=== PATIENT | male | born 1955 | race Caucasian/White ===

== ENCOUNTER → 2018-01-08 09:56 | Outpatient (CLI) | payer BC, SELFPAY ==
[2018-01-08 12:13] LABS: Absolute Lymphocyte Count 2.62 X10^3/ul (0.83-4.51); Absolute Neutrophil Count 4.3 X10^3/uL (2.0-7.7); Basophil# 0.02 X10^3/uL; Basophil% 0.3 % (0-1); Eosinophil# 0.15 X10^3/uL; Hematocrit 51.4 % (40-54); Hemoglobin 17.1 g/dl (13.0-16.5); Lymphocyte # 2.62 X10^3/ul (4.0); Lymphocyte % 34.4 % (19-41); Mean Corp Hgb Conc 33.3 g/gl (32-36); Mean Corpuscular Hgb 29.5 pg (27.0-32.0); Mean Corpuscular Volume 88.8 fL (80-94); Mean Platelet Vol. 9.7 fl (6.2-12.0); Monocyte# 0.56 X10^3/uL; Monocyte% 7.4 % (0-10); Neutrophil # 4.25 X10^3/uL (2.7-7.7); Neutrophil % 55.8 % (47-70); Platelet Count 151 K/mm3 (150-450); RBC Distribution Width CV 14.4 % (11.6-14.6); RBC Distribution Width SD 46.1 fl (35.1-43.9); Red Blood Count 5.79 M/mm3 (4.6-6.2); White Blood Count 7.6 K/mm3 (4.4-11.0)
[2018-01-08 12:14] LABS: POSITIVE COUNT NO; POSITIVE DIFFERENTIAL NO; POSITIVE MORPHOLOGY NO
[2018-01-08 12:24] LABS: Erythrocyte Sedimentation Rate 14 mm/hr (0-20)
[2018-01-08 12:33] LABS: ALB/GLOB Ratio 0.8 RATIO (0.9-2.4); AST(SGOT) 22 U/L (15-37); Alanine Aminotransfer ALT/SGPT 40 U/L (16-61); Albumin, Serum 3.6 g/dL (3.2-5.0); Alkaline Phosphatase 69 U/L (45-117); Anion Gap 8 (5-15); BUN 17 mg/dL (7-18); BUN/Creat Ratio 14.3 RATIO (10-20); Calcium,Total 9.1 mg/dL (8.5-10.1); Chloride 106 mmol/L (98-107); Creatinine, Serum 1.19 mg/dL (0.70-1.30); EST Glomerular Filtration Rate 65 mL/min (>60); Est Glom Filt Rate - Afr Amer 79 mL/min (>60); Globulin 4.3 g/dL (2.2-4.2); Glucose 86 mg/dL (74-106); Potassium 4.2 mmol/L (3.5-5.1); Protein, Total 7.9 g/dL (6.4-8.2); Rheumatoid Factor < 10.0 IU/mL (<15); Sodium Level 140 mmol/L (136-145); Uric Acid 7.5 mg/dL (3.5-7.2)
[2018-01-11 11:06] LABS: CCP IgG Antibodies 9 units (0-19); HEPATITIS B SURFACE AG Negative (Negative); Hep B Surface Antibodies Non Reactive (.); Hep C Antibodies <0.1 s/co ratio (0.0-0.9)
[2018-01-12 09:38] LABS: ANTINUCLEAR ANTIBODIES DIRECT Negative (Negative)
== END ==
PROVIDERS: Family Provider Family Medicine; PCP Family Medicine; Visit Provider Internal Medicine Rheumatology
DX: M06.4 Inflammatory polyarthropathy (principal); I82.5Z9 Chronic embolism and thrombosis of unspecified deep veins of unspecified distal lower extremity; N20.0 Calculus of kidney; I87.2 Venous insufficiency (chronic) (peripheral); Z86.011 Personal history of benign neoplasm of the brain
CPT/HCPCS: 36415; 80053; 84550; 85025; 85652; 86038; 86140; 86200; 86431; 86706; 86803; 87340

== ENCOUNTER → 2018-08-04 13:32 | Outpatient (CLI) | payer BC, SELFPAY ==
--- NOTE | 2018-08-04 13:42 | US_ITS ---
STUDY: RENAL ULTRASOUND - COMPLETE REASON FOR EXAM: Male, 63 years old. Renal cysts. TECHNIQUE: Ultrasound evaluation of the kidneys was performed with real-time and static chatterjee-scale imaging. COMPARISON: CT July 29, 2017. FINDINGS: RIGHT KIDNEY: Normal location of the right kidney, which is normal in size. The right kidney measures 12.4 cm. There is a normal cortex of the right kidney. The renal cortex measures 1.4 cm. There is no right renal mass or cyst. There are no right renal calculi. There is no right hydronephrosis. DISTAL RIGHT URETER: There is non-visualization of the distal right ureter. There is no demonstrated right ureterovesical junction calculus. There is a visualized right ureteral jet. LEFT KIDNEY: Normal location of the left kidney, which is normal in size. The left kidney measures 10.2 cm. There is a normal cortex of the left kidney. The renal cortex measures 1.6 cm. There is a 1.3 cm upper pole cyst, decreased compared to prior CT. There are no left renal calculi. There is no left hydronephrosis. DISTAL LEFT URETER: There is non-visualization of the distal left ureter. There is no demonstrated left ureterovesical junction calculus. There is a visualized left ureteral jet. BLADDER: The distended urinary bladder has a volume of 49 ml. There is a normal wall thickness of the distended urinary bladder. There is no demonstrated mass within the urinary bladder. There are no demonstrated bladder calculi. US/Kidney and Bladder IMPRESSION: Left renal cyst is decreased compared to prior CT. No hydronephrosis. Electronically Signed: Good Foreman MD at 15:52 EST , Service support ,
== END ==
PROVIDERS: Family Provider Family Medicine; PCP Family Medicine; Referring Provider Urology; Visit Provider Urology
DX: N28.1 Cyst of kidney, acquired (principal)
CPT/HCPCS: 76770

== ENCOUNTER → 2019-08-03 06:16 | Outpatient (CLI) | payer OTHER, SELFPAY ==
[2019-08-03 07:06] LABS: Anion Gap 3 (5-15); BUN 11 mg/dL (7-18); BUN/Creat Ratio 8.7 RATIO (10-20); Calcium,Total 9.1 mg/dL (8.5-10.1); Chloride 106 mmol/L (98-107); Creatinine, Serum 1.27 mg/dL (0.70-1.30); EST Glomerular Filtration Rate 60 mL/min (>60); Est Glom Filt Rate - Afr Amer 73 mL/min (>60); Glucose 100 mg/dL (74-106); PSA,Total - Annual Screen 0.79 ng/mL (0.00-4.00); Potassium 3.9 mmol/L (3.5-5.1); Sodium Level 141 mmol/L (136-145)
== END ==
LOC: LAB.FUTURE 06:21 → LAB 13:56
PROVIDERS: Family Provider Family Medicine; PCP Family Medicine; Referring Provider Urology; Visit Provider Urology
DX: C61 Malignant neoplasm of prostate (principal); Z12.5 Encounter for screening for malignant neoplasm of prostate
CPT/HCPCS: 36415; 80048; 84153; G0103

== ENCOUNTER 2020-02-22 18:22 | Emergency (ER) | payer OTHER, SELFPAY ==
[2020-02-22 18:23] VITALS: BP 143/92; PULSE 70; RESP 18; TEMP 37.1; O2SAT 94; BMI 32.1
--- NOTE | 2020-02-22 18:34 | ED.DCSUM_ITS ---
History of Present Illness Chief Complaint: Laceration Informant: Patient Onset: Today Current Severity: Mild Maximum Severity: Moderate Narrative: Patient presents with a 3 cm scalp laceration. He states he hit the top of his head against 1 of the metal hooks that holds the car door closed. He is currently on Xarelto. He did not lose consciousness. He is unsure of his last tetanus update. - Past Medical History (1) Renal cyst Status: Chronic Comment: Complex left renal cyst (2) DVT (deep venous thrombosis) Status: Chronic (3) Hypertension Status: Chronic (4) Meningioma Status: Chronic (5) Nephrolithiasis Status: Chronic Past Medical History - Allergies and Home Meds Allergies/Adverse Reactions: Allergies No Known Allergies Allergy (Verified 02/22/20 18:24) Primary Care Physician: Ghanshyam Early MD [Primary Care Provider] - Surgical History: - - Cholecystectomy, left total knee replacement, removal of meningiomas Lives: Spouse/ Significant Other Smoking Status: Never smoker - Family History Paternal Family History: Reports: Heart Disease Maternal Family History: Reports: Diabetes, Heart Disease Review of Systems General: Denies: Chills, Fever Eyes: Denies: Visual changes - bilaterally ENT: Denies: Bilateral ear pain Cardiovascular: Denies: Chest pain Respiratory: Denies: Dyspnea, Cough Gastrointestinal: Denies: Abdominal pain, Nausea, Vomiting, Diarrhea Musculoskeletal: Denies: Extremity Pain Neurological: Denies: Headache, Weakness, Parasthesia Hematologic: Denies: Easy bruising, Easy bleeding Allergy: Denies: Uticaria Physical Exam Vital Signs/Narrative: Vital Signs Temp Pulse Resp BP Pulse Ox 02/22/20 18:23 98.8 F 70 18 143/92 H 94 Inital Vital Signs reviewed: Yes General: Well nourished, Well developed Head: Normocephalic, Trauma - 3 cm laceration right parietal scalp. Bleeding well controlled. ENT: Moist mucous membranes Neck: - - No C-spine tenderness. Cardiovascular: Regular rate, Regular rhythm Respiratory: No distress, CTA bilaterally Abdomen: Soft, Nontender Extremities: Nontender Skin: Normal color, No rash Neurological: Alert, Oriented x3, Normal Strength, Normal Sensation Psychological: Normal affect Diagnostic/Tx/Re-eval Impressions Brain CT 02/22/20 18:34 IMPRESSION: No acute process or significant interval change * Right inferior temporal bone craniectomy defect noted. A cortical plate-screw construct is present in the frontal and parietal. Moderate volume loss interest for the right temporal lobe is present likely related to the prior meningioma/postsurgical changes. No acute fracture is seen. Electronically Signed: Jeancarlos Hayes MD at 19:35 EDT , Service support , 02/22/20 18:34 CT Head [Brain/Head without Contrast] [CT] Stat - Medical Decision Making Tetanus update is provided. CT scan is unremarkable. Wound is anesthetized with 1 cc of lidocaine with epinephrine. Wound is cleansed and irrigated. Skin is closed with 4 graham. Patient will follow-up with his PCP in 5 to 7 days for staple removal. Procedures - Lacerations No standard instances Length: 1.18 in Depth: Sub Q Laceration repair: Lidocaine with epi, Local Number of Sutures/[place]: 4 - Stable ED Disposition - Plan for ED Patient: Disposition: Home or Assisted Living Diagnosis: Scalp laceration Instructions: ED Laceration Scalp Sutures or Graham Referrals: Ghanshyam Early MD [Primary Care Provider] - 7 Days for suture removal
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
[2020-02-22] MEDS: Diphth,Pertuss(Acell),Tet Vac 0.5 ML Vial IM (18:49)
== END 2020-02-22 20:06 | disposition home or self-care (01) ==
PROVIDERS: Emergency Provider Emergency Medicine; PCP Family Medicine
DX: S01.01XA Laceration without foreign body of scalp, initial encounter (principal); W22.8XXA Striking against or struck by other objects, initial encounter; Y93.9 Activity, unspecified; Y92.810 Car as the place of occurrence of the external cause; Y99.9 Unspecified external cause status; Z23 Encounter for immunization; I10 Essential (primary) hypertension; D32.0 Benign neoplasm of cerebral meninges; Z79.01 Long term (current) use of anticoagulants; Z79.899 Other long term (current) drug therapy; Z86.718 Personal history of other venous thrombosis and embolism; Z96.652 Presence of left artificial knee joint
CPT/HCPCS: 12002; 70450; 90471; 90715; 99283

== ENCOUNTER → 2020-10-09 16:30 | Outpatient (CLI) | payer OTHER, SELFPAY ==
[2020-10-09 18:10] LABS: Absolute Lymphocyte Count 2.91 X10^3/uL (0.83-4.51); Absolute Neutrophil Count 3.9 X10^3/uL (2.0-7.7); Basophil# 0.04 X10^3/uL; Basophil% 0.5 % (0-1); Eosinophil# 0.09 X10^3/uL; Eosinophils% 1.2 % (0-5); Hematocrit 54.3 % (40-54); Hemoglobin 17.2 g/dL (13.0-16.5); Lymphocyte # 2.91 X10^3/ul (4.0); Lymphocyte % 38.2 % (19-41); Mean Corp Hgb Conc 31.7 g/dL (32-36); Mean Corpuscular Hgb 28.8 pg (27.0-32.0); Mean Corpuscular Volume 90.8 fL (80-94); Mean Platelet Vol. 9.6 fl (6.2-12.0); Monocyte# 0.64 X10^3/uL; Monocyte% 8.4 % (0-10); NRBC Flagged by Analyzer 0 % (0-5); Neutrophil # 3.91 X10^3/uL (2.7-7.7); Neutrophil % 51.3 % (47-70); Platelet Count 170 K/mm3 (150-450); RBC Distribution Width CV 14.1 % (11.6-14.6); RBC Distribution Width SD 45.8 fl (35.1-43.9); Red Blood Count 5.98 M/mm3 (4.6-6.2); White Blood Count 7.6 K/mm3 (4.4-11.0)
[2020-10-09 18:19] LABS: Erythrocyte Sedimentation Rate 3 mm/hr (0-20)
[2020-10-09 18:39] LABS: ALB/GLOB Ratio 0.8 RATIO (0.9-2.4); AST(SGOT) 17 U/L (15-37); Alanine Aminotransfer ALT/SGPT 47 U/L (16-61); Albumin, Serum 3.4 g/dL (3.2-5.0); Alkaline Phosphatase 68 U/L (45-117); Anion Gap 3 (5-15); BUN 19 mg/dL (7-18); BUN/Creat Ratio 15.6 RATIO (10-20); CRP 3.86 mg/L (0.0-3.0); Calcium,Total 8.9 mg/dL (8.5-10.1); Chloride 106 mmol/L (98-107); Creatinine, Serum 1.22 mg/dL (0.70-1.30); EST Glomerular Filtration Rate 63 mL/min (>60); Est Glom Filt Rate - Afr Amer 76 mL/min (>60); Globulin 4.1 g/dL (2.2-4.2); Glucose 73 mg/dL (74-106); Potassium 3.6 mmol/L (3.5-5.1); Protein, Total 7.5 g/dL (6.4-8.2); Sodium Level 141 mmol/L (136-145)
== END ==
PROVIDERS: PCP Family Medicine; Referring Provider Internal Medicine Rheumatology; Visit Provider Internal Medicine Rheumatology
DX: M06.4 Inflammatory polyarthropathy (principal); M17.0 Bilateral primary osteoarthritis of knee; N20.0 Calculus of kidney; I87.2 Venous insufficiency (chronic) (peripheral); I82.5Z9 Chronic embolism and thrombosis of unspecified deep veins of unspecified distal lower extremity; Z86.011 Personal history of benign neoplasm of the brain
CPT/HCPCS: 36415; 80053; 85025; 85652; 86140

== ENCOUNTER 2021-10-01 15:17 | Outpatient (CLI) | payer OTHER, SELFPAY ==
[2021-10-01 18:14] LABS: PSA,Total - Annual Screen 0.92 ng/mL (0.00-4.00)
== END 2021-10-01 23:59 | disposition short-term general hospital (02) ==
LOC: LAB 15:19
PROVIDERS: PCP Family Medicine; Visit Provider Urology
DX: Z12.5 Encounter for screening for malignant neoplasm of prostate (principal)
CPT/HCPCS: 36415; 84153; G0103

== ENCOUNTER → 2024-07-07 | Outpatient (CLI) | payer OTHER, SELFPAY ==
--- NOTE | 2024-07-07 13:03 | CT_ITS ---
CT RIGHT LOWER EXTREMITY WITH 3-D IMAGING CLINICAL INDICATION: POST TRAUMATIC OA TECHNIQUE: Axial CT images of the right lower extremity (including right hip, right knee, and right ankle) was performed without IV contrast material. Coronal and sagittal reformats were provided. The protocol utilizes one or more of the following dose reduction techniques: automated exposure control, adjustment of mA and/or kV according to patient size, and/or use of iterative reconstruction technique. RADIATION DOSAGE (If Supplied By Facility): CTDIvol = ( 19.87 ) mGy, DLP = ( 1289.30 ) mGycm COMPARISON: No relevant prior comparison study available. FINDINGS: Bones: There is mild degenerative arthrosis of the right hip joint with small marginal osteophyte formation and subchondral cyst formation in the superolateral aspect of the right femoral head. There is tricompartment degenerative arthrosis of the right knee joint, most severe in the medial femorotibial compartment where there is severe joint space narrowing, marginal osteophyte formation, and subchondral sclerosis. There is mild tibiotalar and subtalar arthrosis. Osseous structures are intact without evidence of fracture or dislocation. No lytic or blastic osseous masses. Soft Tissues: There is a small right knee joint effusion. The deep soft tissue structures are unremarkable. The superficial soft tissues are unremarkable without evidence of edema, hematoma, or foreign body. CT/Extremity Lower without Contra IMPRESSION: Tricompartment degenerative arthrosis of the right knee, most severe in the medial femorotibial compartment. Small right knee joint effusion. Electronically Signed: Mka Short MD at 13:57 EST ,
== END | disposition home or self-care (01) ==
PROVIDERS: PCP Family Medicine; Referring Provider Specialist; Visit Provider Specialist
DX: M25.561 Pain in right knee (principal); M17.31 Unilateral post-traumatic osteoarthritis, right knee; M21.161 Varus deformity, not elsewhere classified, right knee
CPT/HCPCS: 73700

== ENCOUNTER 2024-07-25 07:03 | Observation (INO) | payer OTHER, SELFPAY ==
--- NOTE | 2024-07-07 12:48 | EKG12_ITS ---
Test Reason : PREOP Blood Pressure : */* mmHG Vent. Rate : 63 BPM Atrial Rate : 63 BPM P-R Int : 188 ms QRS Dur : 108 ms QT Int : 412 ms P-R-T Axes : -2 -46 21 degrees QTcB Int : 421 ms Normal sinus rhythm with sinus arrhythmia Left anterior fascicular block Abnormal ECG Confirmed by George Ram ([id number]), senior technical editor BRENT MINER ([id number]) on 07/08/2024 8:18:55 AM Referred By: Kei Early Confirmed By: George Ram
[2024-07-07 13:50] LABS: Absolute Lymphocyte Count 1.63 X10^3/uL (0.83-4.51); Absolute Neutrophil Count 3.9 X10^3/uL (2.0-7.7); Basophil# 0.04 X10^3/uL; Basophil% 0.6 % (0-1); Eosinophil# 0.14 X10^3/uL; Eosinophils% 2.2 % (0-5); Hematocrit 46.8 % (40-54); Lymphocyte # 1.63 X10^3/ul (0.83-4.51); Lymphocyte % 25.6 % (19-41); Mean Corp Hgb Conc 34.2 g/dL (32-36); Mean Corpuscular Hgb 32.3 pg (27.0-32.0); Mean Corpuscular Volume 94.5 fL (80-94); Mean Platelet Vol. 9.1 fl (6.2-12.0); Monocyte% 9.4 % (0-10); NRBC Flagged by Analyzer 0 % (0-5); Neutrophil # 3.94 X10^3/uL (2.7-7.7); Neutrophil % 61.9 % (47-70); Platelet Count 147 K/mm3 (150-450); RBC Distribution Width CV 14.9 % (11.6-14.6); RBC Distribution Width SD 50.6 fl (35.1-43.9); Red Blood Count 4.95 M/mm3 (4.6-6.2); White Blood Count 6.4 K/mm3 (4.4-11.0)
[2024-07-07 13:58] LABS: International Normalized Ratio 1.3; Partial Thromboplast Time 28.9 Seconds (24.1-36.2); Prothrombin Time (Protime)PT. 15.7 SECONDS (11.7-14.9)
[2024-07-07 14:09] LABS: Albumin, Serum 3.4 g/dL (3.2-5.0); Anion Gap 4 (5-15); BUN 17 mg/dL (7-18); BUN/Creat Ratio 13.9 RATIO (10-20); Calcium,Total 8.8 mg/dL (8.5-10.1); Chloride 110 mmol/L (98-107); Creatinine, Serum 1.22 mg/dL (0.70-1.30); EST Glomerular Filtration Rate 62 mL/min (>60); Est Glom Filt Rate - Afr Amer 75 mL/min (>60); Glucose 103 mg/dL (74-106); Magnesium 2.1 mg/dL (1.6-2.6); Potassium 3.8 mmol/L (3.5-5.1); Sodium Level 142 mmol/L (136-145)
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
[2024-07-25] VITALS (22 sets, daily range): BP systolic 113–138; BP diastolic 64–78; PULSE 61–81; RESP 16–18; TEMP 36.3–36.9; O2SAT 89–97; BMI 31.8
--- NOTE | 2024-07-25 07:15 | PCM.PRE.AN2 ---
ASA Classification* ASA Classification ASA Classification: 2 Assessment & Plan Anesthesia* Anesthesia Assessment Anesthesia Assessment: Discussed sedation and/or anesthesia options, risks, benefits, and alternatives with patient/parents/legal guardian/POA. Questions invited. The patient/parents/legal guardian/POA seems to understand and agrees to proceed with anesthesia plan. Reviewed the physical assessment, medical history, allergy history and patient home medications list prior to surgery/procedure/anesthetic and documented any changes. Performed airway and anesthesia risk assessments. Anesthesia Type Anesthesia Type: General (vs spinal) and Block Anesthesia Focused Assessment* Airway Assessment Mouth opens: >3 cm Mallampati Score: II Focused Labs Anesthesia Preop lab: CBC WBC 6.4 K/mm3 (4.4-11.0) 07/07/24 13:31 RBC 4.95 M/mm3 (4.6-6.2) 07/07/24 13:31 Hgb 16.0 g/dL (13.0-16.5) 07/07/24 13:31 Hct 46.8 % (40-54) 07/07/24 13:31 Plt Count 147 K/mm3 (150-450) L 07/07/24 13:31 CHEMISTRY Potassium 3.8 mmol/L (3.5-5.1) 07/07/24 13:31 Sodium 142 mmol/L (136-145) 07/07/24 13:31 Magnesium 2.1 mg/dL (1.6-2.6) 07/07/24 13:31 BUN 17 mg/dL (7-18) 07/07/24 13:31 Creatinine 1.22 mg/dL (0.70-1.30) 07/07/24 13:31 Glucose 103 mg/dL (74-106) 07/07/24 13:31 COAG PT 15.7 SECONDS (11.7-14.9) H 07/07/24 13:31 Pre-Assessment Diagnosis/Proposed Procedure Planned Operative Procedure(s): ROBOTIC ASSISTED RIGHT TOTAL KNEE ARTHROPLASTY, ERAS Anesthesia History Anesthesia History - database administration associate: Anesthesia History - database administration associate Hx Hospitalization No 07/04/24 15:32 Any Problems With Anesthesia No 07/04/24 15:32 Cholinesterase deficiency No 07/04/24 15:32 You/Your Family Experience No 07/04/24 15:32 fever (hyperthermia) with Relationship Recent Exposure to Contagious No 07/22/17 10:00 Disease Does patient have nerve No 07/04/24 15:32 stimulator Patient instructed to have device shut off --Does patient have Pacemaker or ICD? When Was Last Pacemaker Check QUESTION #4 FULL TEXT: You/Your Family Experience fever (hyperthermia) with Anesthesia Last Oral Intake Last Oral intake: Last Oral Intake NPO since Meds taken in AM with sips of water? Meds patient instructed to take am of surgery PONV PONV - database administration associate: PONV - database administration associate Female No 07/04/24 15:32 HX of Motion Sickness No 07/04/24 15:32 HX of N/V After Surgery No 07/04/24 15:32 Non-Smoker Yes 07/04/24 15:32 Duration of Surgery greater Yes 07/04/24 15:32 than 60 minutes Number of Risk Factors 2 07/04/24 15:32 PONV Score Moderate Risk 07/04/24 15:32 Height & Weight Height & Weight: Anesthesia: Height & Weight Height 6 ft 01/02/21 12:17 Respiratory Assessment Respiratory Assessment - database administration associate: Respiratory Tract Infection Hx - database administration associate Hx Respiratory Tract Infection No 07/04/24 15:32 STOP Sleep Apnea STOP Sleep Apnea - database administration associate: STOP Sleep Apnea - database administration associate Hx Hypertension Yes: hx of, NONE PRESENTLY 07/04/24 15:32 Hx Sleep Apnea No 07/04/24 15:32 CPAP BIPAP Do you snore loudly (louder No 07/04/24 15:32 than talking or can be heard Do you often feel tired/ No 07/04/24 15:32 fatigued/ sleepy during daytime? Has anyone observed you stop No 07/04/24 15:32 breathing during sleep? STOP Results Negative 07/04/24 15:32 QUESTION #5 FULL TEXT : Do you snore loudly (louder than talking or can be heard through closed doors)? 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 Specify any problems Hx of Preganancy in last 3 N/A 07/04/24 15:32 Months Nurse Filling Out Transfusion VCHRISTIN 07/04/24 15:32 & Questions: Date: 07/04/24 07/04/24 15:32 Time: 15:33 07/04/24 15:32 Patient unable to answer at this time (ie. confused, unrespo /Reproduction History /Reproductive History - database administration associate: /Reproductive Hx- database administration associate Hx Now Gestational Age (in weeks): EDC: Hx Hx Para Hx Section SAB Active Medications Active Medications: Current Medications Generic Name Dose Route Start Last Admin Trade Name Freq PRN Reason Stop Dose Admin Acetaminophen 1,000 mg 07/25/24 08:45 Acetaminophen 500 Mg Tablet PO 07/25/24 08:46 X1 ONE Acetaminophen 1,000 mg 07/25/24 14:00 Acetaminophen 500 Mg Tablet PO Q8 HERBERTH Celecoxib 400 mg 07/25/24 08:45 Celecoxib 200 Mg Capsule PO 07/25/24 08:46 X1 ONE Tranexamic Acid 2,000 mg/ 0 mg 07/25/24 08:45 Sodium Chloride 100 ml OPERA.SITE 07/25/24 08:46 X1 ONE Sodium Chloride 77.4 ml/ 0 ml 07/25/24 08:45 Ropivacaine 200 mg/ OPERA.SITE 07/25/24 08:46 Epinephrine HCl 0.6 mg/ X1 ONE Ketorolac Tromethamine 30 mg/ Morphine Sulfate 5 mg Dexamethasone Sodium Phosphate 10 mg 07/25/24 08:45 Dexamethasone 10 Mg/Ml Vial IV 07/25/24 08:46 X1 ONE Enoxaparin Sodium 60 mg 07/25/24 18:00 Enoxaparin 60 Mg/0.6 Ml Syringe SC 07/26/24 18:01 Q12@0600,1800 [facility] Enteral Nutritional Formula 237 ml 07/25/24 08:00 Ensure Surgery 237 Ml Liquid PO TIDCM [facility] Famotidine 20 mg 07/25/24 10:00 Famotidine 20 Mg Tablet PO DAILY [facility] Folic Acid 1 mg 07/25/24 10:00 Folic Acid 1 Mg Tablet PO BID [facility]BER[facility] Gabapentin 600 mg 07/25/24 08:45 Gabapentin 600 Mg Tablet PO 07/25/24 08:46 X1 ONE Hydroxychloroquine Sulfate 200 mg 07/25/24 08:00 Hydroxychloroquine 200 Mg Tablet PO BIDCM [facility] Lactated Ringer's 1,000 mls @ 999 mls/hr 07/25/24 08:45 IV 07/25/24 09:45 .Q1H1M HERBERTH Lactated Ringer's 1,000 mls @ 999 mls/hr 07/25/24 08:45 IV 07/25/24 09:45 .Q1H1M [facility]BER[facility] Cefazolin Sodium 2 gm/ N/A 20 mls @ 400 mls/hr 07/25/24 08:45 IV 07/25/24 08:47 PREOP ONE Magnesium Sulfate 1 gm/ 102 mls @ 408 mls/hr 07/25/24 08:45 Dextrose IV 07/25/24 08:59 X1 ONE Cefazolin Sodium 1 gm in 50 mls @ 150 mls/hr 07/25/24 14:00 IV 07/25/24 22:19 Q8 HERBERTH Insulin Human Lispro 1 - 6 unit 07/25/24 08:45 Insulin Lispro 100 Unit/Ml Insuln.Pen SC 07/25/24 18:00 Q4H PRN PRN BG>/= 180, SEE PROTOCOL Protocol Methotrexate 17.5 mg 07/25/24 07:15 Methotrexate 2.5 Mg Tablet PO QWEEK [facility] Morphine Sulfate 2 - 4 mg 07/25/24 07:03 Morphine 2 Mg/Ml Syringe IV Q2H PRN PRN Pain Score 6-10 Non-Formulary Medication 15 meq 07/25/24 10:00 Potassium Chloride PO BID [facility] Ondansetron HCl 4 mg 07/25/24 07:03 Ondansetron 4 Mg/2 Ml Vial IV Q8H PRN PRN NAUSEA Oxycodone HCl 5 - 10 mg 07/25/24 07:03 Oxycodone 5 Mg Tablet PO Q4H PRN PRN Pain Score 4-10 Promethazine HCl 12.5 mg 07/25/24 07:03 Promethazine 25 Mg/Ml Syringe IM Q6H PRN PRN NAUSEA/VOMITING Protocol Rivaroxaban 20 mg 07/26/24 10:00 Rivaroxaban 20 Mg Tablet PO DAILY [facility] Senna/Docusate Sodium 2 tablet 07/25/24 10:00 Senna/Docusate Sodium 1 Tablet PO BID [facility] Sodium Chloride 5 - 15 ml 07/25/24 08:45 0.9% Nacl Peripheral Flush Adult/Peds IV UD PRN SALINE FLUSH PFSH Medical History Wears hearing aid Wears glasses Rheumatoid arthritis DVT (deep venous thrombosis) Back pain Injury of head and neck Non-smoker History of pain when walking History of edema Hypertension History of rheumatic fever History of brain tumor Cephalgia Forehead laceration Forehead laceration Home Medications ?Medication ?Instructions ?Recorded ?Last Taken ?Type rivaroxaban 20 mg tablet (Xarelto) 20 mg PO DAILY blood thinner 07/09/17 07/08/17 History hydroxychloroquine 200 mg tablet 200 mg PO BIDCM 02/22/20 Unknown History potassium chloride 15 mEq 15 meq PO BID 02/22/20 Unknown History tablet,extended release(part/cryst) folic acid 1 mg tablet 1 mg PO BID 01/02/21 Unknown History methotrexate sodium 2.5 mg tablet 17.5 mg PO QWEEK 07/04/24 Unknown History Allergy/AdvReac Type Severity Reaction Status Date / Time No Known Allergies Allergy Verified 07/04/24 15:14 Surgical History History of surgical procedure on eye proper using laser History of cystoscopy Hx of total knee replacement History of laparoscopic cholecystectomy Hx of cataract extraction Social History Smoking Status: Never smoker Review of Systems (Anesthesia) ROS Narrative System reviewed and no additional complaints, except as documented.
[2024-07-25] MEDS: Magnesium 1 GM over 15 mins IV (07:53)
[2024-07-25] MEDS: Lactated Ringers 1,000 ML 999 ML IV ×2 (07:54→12:12)
[2024-07-25] MEDS: Gabapentin 600 MG Tablet PO (07:55)
[2024-07-25] MEDS: Celecoxib 200 MG Capsule 400 MG PO (07:55)
[2024-07-25] MEDS: Acetaminophen 500 MG Tablet 1000 MG PO ×2 (07:55→21:22)
[2024-07-25 08:33] LABS: Bedside Glucose 109 mg/dL (74-106)
[2024-07-25] MEDS: Cefazolin 2 GM in Syringe IV (08:44)
--- NOTE | 2024-07-25 08:45 | KNEE_PTH ---
PATIENT: STANLEY CLAUDIO LOC: MS3 U#:[id number] AGE/SX: 69/M ROOM: [facility] [place] RE07/25/[address]: Dr. Kei Early MD : 1955 BED: 1 DIS: 07/26/2024 SPEC #: [id number] RECD: 07/25/24 13:05 STATUS: KAMLESH REMichelle #: [id number] AFSHAN: 07/25/24 08:[address]: Kei Early DEPT: SURGICAL PATHOLOGY RECD BY: Teressa Alonzo ENTERED: 07/25/24 13:46 SP TYPE: TOTAL KNEE OTHR DR: Dr. Ghanshyam Early MD Tissues: Knee, NOS Procedures: Decalcification bone/plaque Surgery Specimen Level IV HEADER OPERATION: Robotic assisted right total knee arthroplasty PRE-OP DIAGNOSIS: Severe right knee osteoarthritis TISSUE SUBMITTED: Debrided bone and tissue - right knee MICROSCOPIC DIAGNOSIS Bone and tissue of right knee, total knee resection: Severe degenerative joint disease. AM:mr 07/29/2024 MICROSCOPIC DESCRIPTION Slides are reviewed. GROSS DESCRIPTION Received is one container designated bone and soft tissue right knee. The specimen consists of multiple fragments of severino-yellow bone measuring in aggregate 16.0 x 14.0 x 2.2 cm. Also in the specimen container are multiple fragments of yellow-white soft tissue measuring in aggregate 8.0 x 3.0 x 2.0 cm. A number of bony fragments contain articular surfaces consistent with tibial plateau and femoral condyle and displaying prominent osteophyte formation, eburnation and bone erosion. Road Machine Runner sections are submitted in two cassettes as follows: 1 - soft tissue, 2 - bone after decalcification. / AM. 07/25/2024 TC:5 CPT: 56282, 97668
[2024-07-25] MEDS: dexAMETHasone 10 MG/ML Vial IV (08:48)
[2024-07-25] MEDS: JPS (Morphine 10mg/ml) OPERA.SITE (09:49)
[2024-07-25] MEDS: TRANEXAMIC ACID 2,000 MG, 0.9% Normal Saline (100mL Bag) 100 ML OPERA.SITE (10:15)
--- NOTE | 2024-07-25 10:20 | PCM.OPRPT ---
Operative Report (Standard) Operative Information Surgery/Procedure Performed: Minimally invasive right robotic assisted total knee replacement Surgeon: Kei Early Date of Procedure: 07/25/24 Procedure Start Time: 09:08 Procedure Stop Time: 10:51 Pre-Operative Diagnosis: Right knee primary osteoarthritis Post-Operative Diagnosis: right knee primary osteoarthritis Select all DRAINS/GRAFTS/IMPLANTS that apply: Prosthetic device Prosthetic device details: See body of operative report Type of Anesthesia: Spinal Special Medications: 2 g Ancef, 1 g TXA at incision, 1 g TXA closure, 10 mg Decadron, joint cocktail (5 mg Duramorph, 30 mL of 0.5% Ropivicaine, 1000 units of epinephrine, 30 mg of Toradol) Estimated Blood Loss: 300 Fluids Replaced: 1500 mL crystalloid Specimen collected: Yes Description of specimen(s) removed: Bony cuts Description of surgery: Implants used: 1. Darron size 5 triathlon cruciate retaining distal femoral press-fit component 2. Darron size 6 press-fit tritanium tibial baseplate 3. [place] X3 9 mm polyethylene 4. Darron X3 38 mm asymmetric patella Brief history operative indications: 69-year-old M with history of right knee osteoarthritis with radiographic findings with loss of joint space, osteophyte formation and subchondral sclerosis. Failed conservative measures as mentioned in the H&P. Discussion of total knee arthroplasty as well as risk and benefits were discussed the patient including but not limited to blood loss, DVTs, PEs, neurovascular damage, general risk of anesthesia including loss of life, and stiffness or instability were discussed with patient. Patient demonstrated understanding and was able to sign informed consent. Procedure: On the date of procedure patient's right lower extremity was marked in the preoperative area. The patient was then taken back to the operating room where the patient was placed on the table in the supine position. All bony prominences were identified a well-padded. Anesthesia assumed control of the C-spine and airway and remained controlled throughout the remainder of the procedure. A tourniquet was placed on the right upper thigh and the leg was prepped in a sterile fashion. The surgeon then scrubbed at this time .Upon reentering the room right lower extremity was draped in a standard orthopedic fashion. A timeout was then called and everyone agreed upon the side, the site, the procedure to be performed, patient's identity and antibiotics given. Esmarch bandage was used to exsanguinate the extremity and the tourniquet was placed up to 250 mmHg with the knee in flexion. A midline skin incision was made and sharp dissection was taken down through skin subcutaneous tissue and fat. The standard medial parapatellar incision was made and the patella was subluxed laterally. An Appropriate deep MCL release was done and the fat pad was resected. Our attention was then directed to the patella. The patella was everted and a flat resection was made. The knee was then flexed up in 2 femoral pins were placed inside the incision and 2 tibial pins were placed outside the incision in the medial tibia bicortically. Once this was completed the 2 checkpoints in the femur and tibia were placed. Knee was then flexed up and the bony landmarks were registered. Once this was completed knee was taken through range of motion and manually stressed allowing us to a plan for an appropriate tibial cut. The robotic arm was brought into the field sterilely and checkpoint and saw were registered. Based on the patient's deformity the tibial cut was made in 3 degrees of varus. At this time the tensioner was then placed in the joint and ligament tension was checked at 90 degrees and full extension. Based on the patient's ligamentous tension appropriate adjustments were made to the operative plan and ligament releases were done. Once we were happy with our operative plan with balanced flexion and extension gaps our attention was directed to the femur. The robot was brought into the field sterilely and registered. Posterior condylar cuts, anterior chamfer cuts and anterior cuts were appropriately made for a size 5 femur. When these were completed the saws were switched out in the distal femoral and posterior chamfer cuts were made. Protecting the soft tissue throughout this time. A size 6 tibial base plate was selected. the knee was flexed to 90 degrees and the soft tissues and posterior osteophytes were removed from the joint. 40 cc of the periarticular injection was injected into the posterior medial corner of the joint. The appropriate trials were then placed on the femur and tibia. A trial polyethylene was trialed to ensure proper balancing and stability of the knee. The appropriate tibial internal rotation was then marked with a bovie. Our attention was then directed to the patella. The lug holes were drilled and the patella trial was placed. Patellar tracking was checked and deemed appropriate. Once we were happy lug holes were drilled for the femur and trial components were removed. The tibia was subluxed and pinned into place and the keel was punched and drilled appropriately. Final components were verified and opened. The wound was copiously irrigated with normal saline. When the cement was ready the components were impacted into place starting with the tibia then the femur, finally the patella was compressed into place. The trial poly component was placed and the knee was placed in full extension. Once the the implants were secured, the tracking, alignment and balance were verified and a size 9 mm CS polyethylene component was placed. Once the final components were placed a 3-minute dilute Betadine lavage was performed followed by an Irrisept lavage was performed and the wound was copiously irrigated with normal saline solution and the periarticular injection was given. The wound was closed in a layer kirby fashion using #1 vicryl interrupted sutures for the arthrotomy, 2-0 interrupted Vicryl suture for the subcuticular layer and graham for final skin closure. A sterile compressive dressing was then placed. The patient was then awakened from anesthesia, transferred to the [place] and transferred to the PACU for recovery. Post op plan DVT ppx: Patient has significant history and family history of DVT prophylaxis. He will be bridged with Lovenox this evening and tomorrow as he started Xarelto. His normal dose of Xarelto is 20 mg daily which will start tomorrow morning. The plan is outlined in his history and physical as was previously discussed with this primary care physician. Additionally, based on patient's previous history with DVTs developing within 24 hours of surgery any signs or symptoms in the morning would warrant a screening ultrasound we will monitor closely. Follow up: in office in 2 weeks for wound check PT: to start POD #0 at hospital, outpatient PT should be arranged. My physician account management assistant was a vital part of this case, they was important because there was not another skilled set of hands available to their training and aptitude needed for safe and appropriate completion of this case. They were important in appropriate retraction during the case, and protection of soft tissues during bony cuts. In particular the experience and skill of this account management assistant made for safe retraction and exposure during implantation of medical implants without damage to vital soft tissues or structures. His intimate knowledge of the case and my steps aided in safe and expedient completion of the procedure as well as appropriate position of the leg during the case. He was also vital in assisting with closure under my direct supervision. Due to the complexity of this case robotic arm was used to assist in the surgery to improve accuracy and clinical outcomes. Surgical Findings: Stable knee with good patella tracked Sales And Leasing Agent facility service associate: Yes Ambulatory Technologist: Dhruv Childs Tasks completed by registered nurse first assistant: Altering tissue and Other (See op report body) Complications Complications: No Admit VTE Documentation VTE Present on Admission: No VTE Mechan Device Prophylaxis: SCD's and Thigh High ELIZABETH Hose VTE Pharm Prophylaxis ordered?: Yes
--- NOTE | 2024-07-25 11:06 | PCM.POST.ANE ---
Anesthesia: Postop Eval I Current Vital Signs Temperature: 97.4 F Pulse Rate: 65 Blood Pressure: 136/76 Respiratory Rate: 18 Pulse Ox: 93 Assessment Airway patent: Yes Spontaneous unlabored respirations: Yes nausea: No Vomiting: No Anesthesia Complication: No Fluid Hydration Crystalloid volume administer (ml): 1,500 Total IV fluid infused: 1,500 Progress Note Anesthesia document: Postop Eval 1 completed: Yes
--- NOTE | 2024-07-25 11:20 | RAD_ITS ---
EXAM: XR RIGHT KNEE, 1 OR 2 VIEWS CLINICAL INDICATION: post op -- AP and Lateral x-ray of operative knee in PACU TECHNIQUE: Frontal and/or lateral views of the right knee. COMPARISON: No relevant prior studies available. FINDINGS: BONES/JOINTS: Unremarkable. No acute fracture. No sclerotic or destructive changes observed. Normal anatomic alignment of the femoral component and tibial component and patellar component of the metallic knee arthroplasty. SOFT TISSUES: Postoperative air and postoperative soft tissue swelling in the right knee. Midline surgical graham overlying the anterior knee surface. RAD/Knee 1 or 2 Views IMPRESSION: Normal postop changes of the right metallic knee arthroplasty. Electronically Signed: Jeffy Pavon MD at 13:25 EST ,
[2024-07-25] MEDS: oxyCODONE 5 MG Tablet PO ×2 (14:03→18:54)
--- NOTE | 2024-07-25 14:15 | PCM.POST.ANE ---
Anesthesia: Postop Eval I Current Vital Signs Temperature: 97.7 F Pulse Rate: 61 Blood Pressure: 134/76 Respiratory Rate: 16 Pulse Ox: 96 Assessment Airway patent: Yes Spontaneous unlabored respirations: Yes nausea: No Vomiting: No Anesthesia Complication: No Fluid Hydration Crystalloid volume administer (ml): 500 Total IV fluid infused: 500 Progress Note Anesthesia document: Postop Eval 1 completed: Yes
--- NOTE | 2024-07-25 14:16 | PCM.POSTANE2 ---
Anesthesia Postop Eval I Sum Postop Eval Completion status Anesthesia document: Postop Eval 1 completed: Yes Anesthesia Postop Eval I Summary Anesthesia Postop Eval I Summary: Anesthesia Postop Eval I: Assessment Summary Airway patent Yes 07/25/24 14:16 Spontaneous unlabored Yes 07/25/24 14:16 respirations Mental status nausea No 07/25/24 14:16 Vomiting No 07/25/24 14:16 Anesthesia Postop Eval I: Fluid Summary Crystalloid volume administer 500 07/25/24 14:16 (ml) Colloids volume administered ( ml) Blood Product volume administered (ml) Total IV fluid infused 500 07/25/24 14:16 Anesthesia Postop Eval I: Summary Notes Anesthesia Complication No 07/25/24 14:16 Anesthesia Complication Comment: Post-operative progress note Anesthesia: Postop Eval II Evaluation Mental status: Awake Pain Level: 2 nausea: No Vomiting: No
--- NOTE | 2024-07-25 16:36 | PN.HOSP_ITS ---
Reason for Visit Reason for Visit: Diagnoses Encounter for other preprocedural examination (07/25/24) Subjective Subjective Patient postoperatively with no complaints and notes he is doing well. He denies any pain at this point and has sensation returning and is moving his extremity without issue. He does report being hungry otherwise no complaints. Patient denies fevers, chills, nausea, emesis, abdominal pain, chest pain or dyspnea. Objective Data Objective Data Vital Signs: Vital Signs Temp Pulse Resp BP Pulse Ox O2 Del Method O2 Flow Rate 97.7 F L 61 16 134/76 H 96 Nasal Cannula 2 07/25/24 14:16 07/25/24 14:16 07/25/24 14:16 07/25/24 14:16 07/25/24 14:16 07/25/24 13:30 07/25/24 13:30 Oxygen Flow Rate (L/min) 2 Oxygen Delivery Method Nasal Cannula Weight: 235 lb 3.732 oz Body Mass Index (BMI) 31.8 Intake & Output: Intake and Output for Last 24 Hours 07/23/24 07/24/24 07/25/24 23:59 23:59 23:59 Intake Total 2121 Balance 2121 Lab / Micro Data 07/07/24 13:31 07/07/24 13:31 Labs: Laboratory Results - last 24 hr 07/25/24 07:47: POC Glucose 109 H Micro: Microbiology 07/07/24 13:31 Swab (Method) Nasal Screen MRSA/MSSA - Final Radiography Diagnostic Testing: Radiology Impression Knee X-Ray 07/25/24 11:20 IMPRESSION: Normal postop changes of the right metallic knee arthroplasty. Electronically Signed: Jeffy Pavon MD at 13:25 EST , Physical Exam Narrative Physical Examination: General: Awake, alert, oriented x 3 and cooperative, seated upright in the area bed in no apparent distress, notes pain control. Skin: Normal color, normal turgor, no icterus, no cyanosis except for recent OR with right knee with dressing in place with no drainage HEENT: AT/NC, EOMI, PERRLA, MMM. Lungs: CTA bilaterally, moderate effort, mild decrease BL bases, no rales, ronchi or wheezing. Heart: Regular rate and rhythm; no gallop, rub audible. Abdomen: Soft, obese, NTTP, ND, normal BS. Extremities: No cyanosis, no clubbing, no marked peripheral edema, status post right total knee with dressing in place without drainage. Neurological: Patient awake, alert, oriented as noted, cognitive function intact; pupils equally reactive to light and accommodation, cranial nerves grossly normal, moving all 4 extremities except expected limitations given the recent OR with right total knee replacement, strength moderately global decreased Psychiatric: Affect appears normal, denies any pain, no acute evidence of depressive or anxiety feelings. Assessment & Plan Assessment/Plan (1) Osteoarthritis: PLAN: Plan The patient is a 69 y/o M w/ PMHx: Obesity, Hx VTE, Hx meningioma, Rheumatoid arthritis, HTN, Hx Nephrolithasis who presents to the [facility] on 07/25/24 secondary to history of significant right knee primary osteoarthritis with failed outpatient interventions and treatments per recommendation of Dr. Early for planned right total knee replacement. #1. Severe Osteoarthritis, right knee: Failed conservative therapies and treatments, admitted per Dr. Early, s/p 07/25/2024 minimally invasive right robotic assisted total knee replacement, post-operative pain management, bowel regimen, DVT Prophylaxis, PT/OT/CM per Orthopedic surgery discretion. #2. Hypertension: Noted history, not on any regimen, BP normal range, continue to monitor and add regimen if appropriate. #3. History of VTE: Recommend resumption of patient anticoagulant therapy once cleared per general surgery. #4. Rheumatoid arthritis: Patient is on methotrexate as well as Plaquenil and folic acid, given recent surgery may consider holding these agents if concern for healing, certainly would hold methotrexate as this is orally administered Wednesdays. #5. History of meningioma: Status post previous gamma knife surgery/craniectomy, most recent imaging noted 02/22/[address] of the brain with evidence of right inferior temporal bone craniectomy defect noted, cortical plate screw construct present in the frontal and parietal lobe, moderate volume loss right temporal lobe felt likely from prior meningioma/postsurgical changes. #6. Obesity: Weight loss and lifestyle changes encouraged. #7. DVT prophylaxis: As noted recommend resumption of patient anticoagulant therapy once cleared per general surgery. Charges/Coding Visit Charges Inpatient E&M: 73930 Subs Hosp L3
[2024-07-25] MEDS: Cefazolin 1 GM/50 ML BAG IV (17:55)
[2024-07-25] MEDS: Hydroxychloroquine 200 MG Tablet PO (17:58)
[2024-07-25] MEDS: Enoxaparin 60 MG/0.6 ML Syringe SC (17:58)
[2024-07-25] MEDS: Folic Acid 1 MG Tablet PO (17:58)
[2024-07-25] MEDS: Ensure Surgery 237 ML LIQUID PO (18:16)
[2024-07-25] MEDS: Potassium Chloride Oral Tablet 10 MEQ 15 MEQ PO (21:21)
[2024-07-25] MEDS: Senna/Docusate Sodium 1 Tablet 2 TABLET PO (21:22)
[2024-07-26] MEDS: Cefazolin 1 GM/50 ML BAG IV (01:26)
[2024-07-26 01:30] VITALS: BP 109/73; PULSE 62; RESP 16; TEMP 37.2; O2SAT 96
[2024-07-26 05:11] VITALS: BP 122/76; PULSE 68; RESP 16; TEMP 37.2; O2SAT 99
[2024-07-26] MEDS: Enoxaparin 60 MG/0.6 ML Syringe SC (05:22)
[2024-07-26] MEDS: Acetaminophen 500 MG Tablet 1000 MG PO (05:22)
[2024-07-26 06:32] LABS: Hematocrit 37.5 % (40-54); Hemoglobin 12.3 g/dL (13.0-16.5); Mean Corp Hgb Conc 32.8 g/dL (32-36); Mean Corpuscular Hgb 31.6 pg (27.0-32.0); Mean Corpuscular Volume 96.4 fL (80-94); Mean Platelet Vol. 9.3 fl (6.2-12.0); Platelet Count 142 K/mm3 (150-450); RBC Distribution Width CV 14.6 % (11.6-14.6); RBC Distribution Width SD 51.1 fl (35.1-43.9); Red Blood Count 3.89 M/mm3 (4.6-6.2); White Blood Count 11.7 K/mm3 (4.4-11.0)
--- NOTE | 2024-07-26 06:51 | VDLE_ITS ---
Reason For Study: Bilateral leg pain RIGHT LEFT CFV is compressible, spontaneous, phasic, GSV is normal. competent and demonstrates normal CFV is compressible, spontaneous, phasic, augmentation. competent, and demonstrates normal FV is compressible, spontaneous, phasic, augmentation. competent and demonstrates normal FV is compressible, spontaneous, phasic, augmentation. competent and demonstrates normal POP V is compressible, spontaneous, phasic, augmentation. competent and demonstrates normal POP V is compressible, spontaneous, phasic, augmentation. competent and demonstrates normal T/P Trunk is compressible. augmentation. PTV is compressible. T/P Trunk is compressible. RT PerV is compressible. PTV is compressible. GSV is partially compressible throughout with LT PerV is compressible. bright intraluminal echoes consistent with Chronic SVT. Procedure This is a venous duplex using B-mode, color flow and spectral Doppler. Exam performed portable in patient room. A preliminary report was called and/or faxed to [employer] consultant. VL/Venous Duplex US - Jose Antonio Extrem Interpretation Summary Chronic superficial vein thrombosis is noted in the right great saphenous vein. Deep veins of the bilateral lower extremities are patent and compressible segme ntally. There is no evidence of bilateral lower extremity deep vein thrombosis. The left great saph enous vein appears patent and compressible segmentally. Ordering Physician: Dhruv Childs Referring Physician: Kei Early Performed By: Melva Blunt RVT
--- NOTE | 2024-07-26 06:52 | PN.ORTHO_ITS ---
Subjective Subjective The patient was sitting in bed upon examination. Patient denies any chest pain, shortness of breath, dizziness, lightheadedness, nausea or vomiting. Patient does have some bilateral calf soreness. He does have past history of DVT. Patient is on significant DVT prophylaxis plan perioperatively. Managed by his primary care provider. Pain is controlled on medications. No adverse overnight events. Patient has been out of bed walking. Objective Data Objective Data Vital Signs: Vital Signs Temp Pulse Resp BP Pulse Ox O2 Del Method O2 Flow Rate 98.9 F 68 16 122/76 H 99 Room Air 2 07/26/24 05:11 07/26/24 05:11 07/26/24 05:11 07/26/24 05:11 07/26/24 05:11 07/26/24 05:11 07/25/24 13:30 Oxygen Flow Rate (L/min) 2 Oxygen Delivery Method Room Air Weight: 106.7 kg Body Mass Index (BMI) 31.8 Intake & Output: Intake and Output for Last 24 Hours 07/24/24 07/25/24 07/26/24 23:59 23:59 23:59 Intake Total 3822 / 4422 1400 / 1400 Output Total 350 / 920 995 / 995 Balance 3472 / 3502 405 / 405 Lab / Micro Data 07/26/24 05:09 07/26/24 05:09 Labs: Laboratory Results - last 24 hr 07/25/24 07:47: POC Glucose 109 H 07/26/24 05:09: WBC 11.7 H, RBC 3.89 L, Hgb 12.3 L, Hct 37.5 L, MCV 96.4 H, MCH 31.6, MCHC 32.8, RDW Std Deviation 51.1 H, RDW Coeff of Fito 14.6, Plt Count 142 L, MPV 9.3 Micro: Microbiology 07/07/24 13:31 Swab (Method) Nasal Screen MRSA/MSSA - Final Radiography Diagnostic Testing: Radiology Impression Knee X-Ray 07/25/24 11:20 IMPRESSION: Normal postop changes of the right metallic knee arthroplasty. Electronically Signed: Jeffy Pavon MD at 13:25 EST , Physical Exam Narrative Vital signs stable and afebrile. SCDs and ELIZABETH hose are in place bilaterally Patient is able to plantarflex and dorsiflex actively. Sensation is intact to light touch to saphenous, sural, superficial and deep peroneal, and tibial distribution. Main Mepilex dressing is clean dry and intact. Distal pin site dressing has moderate drainage. Patient does have bilateral calf soreness today, he has past history of DVT Const alert, oriented x3 and no apparent distress Assessment & Plan Assessment/Plan (1) Status post total right knee replacement: PLAN: 1. S/P robotic assisted right total knee arthroplasty POD #1 2. Continue Pain Medications: Tylenol and oxycodone 3. DVT Prophylaxis: Patient already had his Lovenox this morning. He will resume his Xarelto 20 mg this morning. Plan will be to get 1 more dose today of Lovenox in the evening. I did discuss case with nursing and the patient. If patient does not get his evening dose in the hospital he has Lovenox at home that he will do his dose if needed. Patient will resume his Xarelto as prescribed by primary care physician. Patient will also continue with the sequential compression devices that was discussed at the preoperative visit which they will purchase. He will wear these for the next 2 weeks 20 hours/day. Continue with elevation. Patient does have some calf soreness bilaterally today. I did place an order for a Doppler ultrasound bilaterally. He has been instructed to contact his primary care physician with any worsening calf pain upon discharge. He currently denies any chest pain or shortness of breath. Please see history and physical exam documentation for extensive DVT prophylaxis plan perioperatively. 4. PT/OT: Weightbearing as tolerated with walker 5. H & H: 12.3/37.5, asymptomatic. Labs have been reviewed and stable 6. Reactive leukocytosis: 11.7, Afebrile. Patient did receive Decadron intraoperatively. No clinical signs of infection. 7. Encouraged Incentive Spirometry 8. Patient is aware of postoperative constipation that can occur from 1-3 days postoperatively. Will continue with senna 2 tablets twice daily until first bowel movement. Patient was advised if not having a bowel movement after day 3 she is to contact orthopedics so appropriate change can be made. Patient voiced understanding. 9. Continue postoperative medical treatment per medicine 10. Disposition: Plan will be for discharge home today as long as patient remains medically stable, tolerates therapy, and pain is adequately controlled. I discussed with the patient the DVT prophylaxis plan again. He voiced understanding agreement with treatment plan. I did discuss with the patient upon discharge if there are any concerns or questions he is to contact our office. They are aware that our office is closed on and Thursday however we do have an on-call doctor that they can talk to if needed. He has outpatient physical therapy established. He will follow-up per postoperative instructions. OARRS was attempted however system is currently down. This dictation was created using voice recognition software. Phonetic and/or grammatical errors may exist. (2) DVT (deep venous thrombosis): QUALIFIERS: Affected thrombotic vein of extremity: unspecified vein of extremity Chronicity: chronic DVT location: lower extremity L aterality: unspecified laterality Qualified Code(s): I82.509 - Chronic embolism and thrombosis of unspecified deep veins of unspecified lower extremity
--- NOTE | 2024-07-26 06:58 | DCINST_ITS ---
Discharge Instructions Diet Discharge Diet: No restrictions DC O2, CPAP, BIPAP needs Additional Home O2 Discharge instructions: No Dressing / Incision Discharge Activity: May Not Drive (No driving for 6 weeks postoperatively. Must also be off all narcotics and able to walk 100 feet without the use of cane or walker.) May shower in (days): 1 (Please turn dressing away from water. Okay to get wet as long as dressing is intact to skin.) Ice area for (Minutes): 20 (Every 1-2 hours while awake. Please place barrier between the skin and ice pack.) Weight Bearing Status: Weight bearing as tolerated Keep extremity elevated above heart level: Operative Extremity Dressing / Incision Call your doctor if your incision/area has: Continuous Slow Oozing, Sudden Increased Bleeding, Increased Pain/ Swelling, Increased Redness and Foul Smelling Discharge Call your doctor if you observe: Fever of 101 or Higher, Coldness, Increased Pain, Numbness or Tingling, Change in Color, Shortness of breath, Chest pain, Calf discomfort and Uncontrolled pain Remove Dressing in: 4 days (Okay to remove dressing on July 30, 2024) Additional Dressing/Incision Instructions:: Follow [facility] Post-op Instructions. Once postoperative dressing has been removed only use gentle soap and water over the incision. Do not use any ointments, Neosporin, salves, alcohol pads over the incision for 6 weeks postoperatively. Do not submerge underwater for 6 weeks postoperatively. DVT prophylaxis plan: Continue Xarelto 20 mg daily. If you do not receive the evening dose of Lovenox on July 26, 2024 in the hospital you will need to take this at home. Continue the sequential compression devices 2 weeks postoperatively wearing these 20 hours/day. If any chest pain, shortness of breath, calf pain would recommend going to the emergency room upon discharge. Continue with ELIZABETH hose/elastic stockings for 2 weeks postoperatively. May remove at nighttime but needs to be placed back on the leg during the day. Do NOT use alcohol with narcotic pain medication. Do NOT make important decisions while taking narcotic medication. If you have problems with taking your medication (rash, itching, nausea, etc.) call the office at once. Follow Up Care Test Results: Test results from this visit will be discussed in further detail at your follow-up appointment, if applicable. Discharge Plan Admission Attending Provider: Kei Early Primary Care Provider: Ghanshyam Early Consulting Providers: Desire Stone Instructions Print Language: Kiswahili Discharge Orders/Prescriptions Prescriptions: New acetaminophen 500 mg Tablet 1,000 mg PO TID 14 Days Qty: 84 0RF Rx Instructions: Do not take more than 3000 mg Tylenol in a 24-hour period. famotidine 20 mg Tablet 20 mg PO DAILY 30 Days Qty: 30 0RF oxycodone 5 mg Tablet 5 - 10 mg PO Q4H PRN PRN (Reason: As needed for pain) 7 Days Qty: 42 0RF sennosides-docusate sodium [Stimulant Laxative Plus] 8.6-50 mg Tablet 2 tab PO BID 3 Days Qty: 12 0RF Rx Instructions: Take until first bowel movement, then as needed enoxaparin 60 mg/0.6 mL Syringe 60 mg subcut Q12@0600,1800 Qty: 0 0RF Rx Instructions: Take last Lovenox evening on July 26, 2024. If you do not receive this in the hospital you will need to take this at home. Continued folic acid 1 mg tablet 1 mg PO BID Xarelto 20 MG tablet 20 mg PO DAILY Patient Comments: hydroxychloroquine 200 MG tablet 200 mg PO BIDCM potassium chloride 15 MEQ tablet,ER particles/crystals 15 meq PO BID methotrexate sodium 2.5 mg tablet 17.5 mg PO QWEEK Discontinued enoxaparin 60 mg/0.6 mL syringe 60 mg subcut Q12.TCU Referrals / Follow Up: Physical,Therapy [Other] - 08/01/24 1:30 pm Ghanshyam Early MD [Primary Care Provider] - Alexia Perkins PA [Med Staff - [facility]] - 08/08/24 2:00 pm Disposition Disposition (needs filled in before D/C Order can be placed): Home, Self Care
[2024-07-26 07:00] LABS: Anion Gap 6 (5-15); BUN 25 mg/dL (7-18); BUN/Creat Ratio 22.5 RATIO (10-20); Calcium,Total 8.5 mg/dL (8.5-10.1); Chloride 110 mmol/L (98-107); Creatinine, Serum 1.11 mg/dL (0.70-1.30); EST Glomerular Filtration Rate 69 mL/min (>60); Est Glom Filt Rate - Afr Amer 84 mL/min (>60); Estimated Creatinine Clearance 77.05 ml/min; Glucose 149 mg/dL (74-106); Sodium Level 139 mmol/L (136-145)
[2024-07-26] MEDS: oxyCODONE 5 MG Tablet PO ×2 (07:24→11:26)
[2024-07-26] MEDS: Senna/Docusate Sodium 1 Tablet 2 TABLET PO (07:24)
[2024-07-26] MEDS: Potassium Chloride Oral Tablet 10 MEQ 15 MEQ PO (07:25)
[2024-07-26] MEDS: Rivaroxaban 20 MG Tablet PO (07:25)
[2024-07-26] MEDS: Famotidine 20 MG Tablet PO (07:26)
[2024-07-26] MEDS: Hydroxychloroquine 200 MG Tablet PO (07:26)
[2024-07-26] MEDS: Folic Acid 1 MG Tablet PO (07:26)
[2024-07-26] MEDS: Ensure Surgery 237 ML LIQUID PO (07:28)
[2024-07-26 09:40] VITALS: BP 110/72; PULSE 59; RESP 16; TEMP 36.6; O2SAT 97
--- NOTE | 2024-07-26 09:45 | CASEMGMT ---
RIKKI ACEVES Assessment: Face to Face with pt for initial transition planning/care coordination assessment. RIKKI ACEVES introduced self and role at [facility], pt voices understanding and consents to assessment. Pt is A&O x4 and answers all questions appropriately at this time. Pt sitting up in bed in no distress. Care providers, pharmacy, and demographics verified/updated. Admitting Dx: Robotic assisted R total knee arthroplasty Strata Score: NA PCP:Sharath Specialists:michelle Early; Eli, rheum Preferred Pharmacy: [facility] Insurance: [employer] Prescription Benefit: yes LNOK: Chantal Odonnell, Living Arrangements: Pt lives with in a split level home with 2 steps to enter. Pt reports prior to surgery, he was I in ADLs/IADLs. Pt denies concerns at home. Transportation: Pt drives self and denies concerns with transportation. Pt will transport pt until he can drive again. DME:cane, FWW, shower chair HHC/SNF: Denies hx of Pt states no concerns with going home at time of dc. Pt has outpt therapy set up at [facility] on 08/01. Pt has order for lovenox tonight. Pt states he has given lovenox to himself before. Pt states he also has had multiple surgeries and knows what to expect. Pt states no further concerns/needs. CM to follow. Advised pt to ask CM if any further question/concerns/needs arise, voices understanding. Pt Goal: Home with outpt therapy Plan: Home with outpt therapy Can BRANDT CM
--- NOTE | 2024-07-26 10:01 | PN.HOSP_ITS ---
Subjective Subjective Doing well, no issues overnight. Some knee pain managed by meds Objective Data Objective Data Vital Signs: Vital Signs Temp Pulse Resp BP Pulse Ox O2 Del Method O2 Flow Rate 98 F 59 L 16 110/72 97 Room Air 2 07/26/24 09:40 07/26/24 09:40 07/26/24 09:40 07/26/24 09:40 07/26/24 09:40 07/26/24 09:40 07/25/24 13:30 Oxygen Flow Rate (L/min) 2 Oxygen Delivery Method Room Air Weight: 235 lb 3.732 oz Body Mass Index (BMI) 31.8 Intake & Output: Intake and Output for Last 24 Hours 07/25/24 07/26/24 07/27/24 03:59 03:59 03:59 Intake Total 4472 / 4472 750 / 750 Output Total 920 / 920 425 / 425 Balance 3552 / 3552 325 / 325 Lab / Micro Data 07/26/24 05:09 07/26/24 05:09 Labs: Laboratory Results - last 24 hr 07/26/24 05:09: WBC 11.7 H, RBC 3.89 L, Hgb 12.3 L, Hct 37.5 L, MCV 96.4 H, MCH 31.6, MCHC 32.8, RDW Std Deviation 51.1 H, RDW Coeff of Fito 14.6, Plt Count 142 L, MPV 9.3, Sodium 139, Potassium 4.0, Chloride 110 H, Carbon Dioxide 24.0, Anion Gap 6, BUN 25 H, Creatinine 1.11, Estim Creat Clear Calc 77.05, Est GFR (MDRD) Af Amer 84, Est GFR (MDRD) Non-Af 69, BUN/Creatinine Ratio 22.5 H, G lucose 149 H, Calcium 8.5 Micro: Microbiology 07/07/24 13:31 Swab (Method) Nasal Screen MRSA/MSSA - Final Radiography Diagnostic Testing: Radiology Impression Knee X-Ray 07/25/24 11:20 IMPRESSION: Normal postop changes of the right metallic knee arthroplasty. Electronically Signed: Jeffy Pavon MD at 13:25 EST , Physical Exam Narrative General: Alert, Oriented x3, Cooperative, No apparent distress HEENT: Atraumatic, PERRLA, EOMI, Normocephalic Oral: Moist Mucosa Neck: Supple, No JVD Lungs: Clear to auscultation, Normal air movement, No rhonchi, No wheeze, No rales Cardiovascular: Regular rate, Regular Rhythm, Normal S1, Normal S2, No murmurs Abdomen: Soft, Non Tender, Non-Distended, No Hepato-splenomegaly Extremities: No edema, Capillary Refill Less than 3 Seconds Skin: Right knee dressing intact Musculoskeletal: No Tenderness to Palpation of Joints or Extremities Neurological: No focal neurological deficits, Motor Exam 5/5 strength throughout, Sensory exam intact to light touch and pain Psych/Mental Status: Normal Affect, Appropriate Assessment & Plan Assessment/Plan (1) Osteoarthritis: PLAN: Plan 07/26/2024: Doing well, pain is controlled. Pain management per primary. From a medical standpoint can be discharged #1. Severe Osteoarthritis, right knee: Failed conservative therapies and treatments, admitted per Dr. Early, s/p 07/25/2024 minimally invasive right robotic assisted total knee replacement, post-operative pain management, bowel regimen, DVT Prophylaxis, PT/OT/CM per Orthopedic surgery discretion. Can resume his home medications #2. Hypertension: Noted history, not on any regimen, BP normal range, continue to monitor and add regimen if appropriate. #3. History of VTE: Recommend resumption of patient anticoagulant therapy once cleared per general surgery. #4. Rheumatoid arthritis: Patient is on methotrexate as well as Plaquenil and folic acid, given recent surgery may consider holding these agents if concern for healing, certainly would hold methotrexate as this is orally administered Wednesdays. #5. History of meningioma: Status post previous gamma knife surgery/craniectomy, most recent imaging noted 02/22/[address] of the brain with evidence of right inferior temporal bone craniectomy defect noted, cortical plate screw construct present in the frontal and parietal lobe, moderate volume loss right temporal lobe felt likely from prior meningioma/postsurgical changes. #6. Obesity: Weight loss and lifestyle changes encouraged. Charges/Coding Visit Charges Inpatient E&M: 76249 Subs Hosp L2
[2024-07-26 11:42] VITALS: BP 123/65; PULSE 69; RESP 16; TEMP 36.4; O2SAT 94
--- NOTE | 2024-07-26 12:19 | PHA.DC_ITS ---
Pharmacy [facility] has performed discharge medication reconciliation and counseling for this patient. 1. ACETAMINOPHEN 1000MG PO TID X 2 WEEKS 2. FAMOTIDINE 20MG PO DAILY 3. OXYCODONE 5-10MG PO Q4H PRN PAIN 4. SENNA/DOCUSATE 2T PO BID The patient's discharge medication list was reviewed for discrepancies and discrepancies were resolved. The patient was counseled on the following discharge medications and changes in medications for homegoing were reviewed. The Reason for Use, instructions for use, and potential side effects were reviewed for all new medications. The patient's questions regarding all of their medications were answered. The patient was able to verbally demonstrate an understanding of their discharge medications. Patient was counseled by pharmacy ancillary, Kyler. Medications at Discharge Home Medications rivaroxaban 20 mg tablet (Xarelto) 20 mg PO DAILY blood thinner 07/09/17 hydroxychloroquine 200 mg tablet 200 mg PO BIDCM 02/22/20 potassium chloride 15 mEq tablet,extended release(part/cryst) 15 meq PO BID 02/22/20 folic acid 1 mg tablet 1 mg PO BID 01/02/21 methotrexate sodium 2.5 mg tablet 17.5 mg PO QWEEK 07/04/24 acetaminophen 500 mg tablet 1,000 mg (2 x 500 mg) PO TID 14 days #84 tabs 07/26/24 enoxaparin 60 mg/0.6 mL subcutaneous syringe 60 mg (0.6 mL) subcut Q12@0600,1800 #0 mL 07/26/24 famotidine 20 mg tablet 20 mg PO DAILY 30 days #30 tabs 07/26/24 oxycodone 5 mg tablet 5 - 10 mg (1 - 2 x 5 mg) PO Q4H PRN PRN As needed for pain 7 days #42 tabs 07/26/24 sennosides 8.6 mg-docusate sodium 50 mg tablet (Stimulant Laxative Plus) 2 tab PO BID 3 days #12 tabs 07/26/24
== END 2024-07-26 12:35 | disposition home or self-care (01) ==
LOC: MS3 07-26 07:11 → SDC 07-26 16:36 → MS3 07-26 16:36
PROVIDERS: Admitting Provider Specialist; PCP Family Medicine; Referring Provider Specialist; Visit Provider Specialist
PROC: 0SRC0JZ Replacement of Right Knee Joint with Synthetic Substitute, Open Approach (ICD-10-PCS; CPT 27447; principal; 2024-07-25 08:15)
DX: M17.11 Unilateral primary osteoarthritis, right knee (principal); M06.9 Rheumatoid arthritis, unspecified; D49.6 Neoplasm of unspecified behavior of brain; I10 Essential (primary) hypertension; Z79.01 Long term (current) use of anticoagulants; Z86.718 Personal history of other venous thrombosis and embolism; E66.9 Obesity, unspecified; Z68.31 Body mass index [BMI] 31.0-31.9, adult; Z79.899 Other long term (current) drug therapy
CPT/HCPCS: 27447; S2900; 01402; 64447; 36415; 73560; 80048; 82040; 82962; 83735; 85025; 85027; 85610; 85730; 87081; 88305; 88311; 93005; 93970; 94668; 96365; 96366; 96372; 97162; 97166; 99221; 99252; C1776; J7120; G0378; G0463; J3475

== ENCOUNTER → 2024-08-29 | Outpatient (CLI) | payer OTHER, SELFPAY ==
--- NOTE | 2024-08-29 14:05 | VDLE_ITS ---
Reason For Study: Right leg swelling RIGHT LEFT GSV is normal. CFV is compressible, spontaneous, phasic, CFV is compressible, spontaneous, phasic, competent, and demonstrates normal competent and demonstrates normal augmentation. augmentation. FV is compressible, spontaneous, phasic, competent and demonstrates normal augmentation. POP V is compressible, spontaneous, phasic, competent and demonstrates normal augmentation. T/P Trunk is compressible. PTV is compressible. RT PerV is compressible. Procedure This is a venous duplex using B-mode, color flow and spectral Doppler. Exam performed in department. A preliminary report was called and/or faxed to Dr. Early. VL/Venous Duplex US, Unilateral Interpretation Summary Deep veins of the right lower extremity are patent and compressible segmentally . There is no evidence of right lower extremity deep vein thrombosis. Chronic superficial vein thrombosis noted in the great saphenous vein below the knee Ordering Physician: Kei Early Referring Physician: Kei Early Performed By: Melva Blunt RVT
== END | disposition home or self-care (01) ==
LOC: CVS 14:01
PROVIDERS: PCP Family Medicine; Referring Provider Specialist; Visit Provider Specialist
DX: R22.41 Localized swelling, mass and lump, right lower limb (principal)
CPT/HCPCS: 93971